=== PATIENT | female | born 1970 ===

== ENCOUNTER 2018-04-25 11:37 | Emergency (ER) | payer BC ==
[2018-04-25 11:43] VITALS: BP 94/66; PULSE 77; TEMP 99; O2SAT 100
--- NOTE | 2018-04-25 12:23 | ED PDOC ---
HPI: CCC, URI, Sore Throat Time Seen by Provider: 04/25/18 12:15 Chief Complaint (Nursing): ENT Problem Chief Complaint (Provider): sore throat x 3 days History Per: Patient History/Exam Limitations: no limitations Have you had recent travel within the past 21 days to any of the following countries: [place], [place], [place] or [place]?: No Onset/Duration Of Symptoms: Days Current Symptoms Are (Timing): Still Present Location Of Pain: Throat. denies: Ear(s) Sick Contacts (Context): None Associated Symptoms: Fever, Chills, Sore Throat, Myalgias. denies: Cough, Sputum, Vomiting, Diarrhea Additional Complaint(s): 47 yo female with non-symptomatic hypotension presents with 3 days of sore throat. Pain localized, worse with swallowing. Pt states she had a fever yesterday of 102.0. Pt denies cough. Pt has been taking teraflu which does not seem to be helping. Pt contacted PMD but could not reach her. Past Medical History Reviewed: Historical Data, Nursing Documentation, Vital Signs Vital Signs: Last Vital Signs Temp 99 F 04/25/18 11:42 Pulse 77 04/25/18 11:42 Resp BP 94/66 L 04/25/18 11:42 Pulse Ox 100 04/25/18 11:42 - Medical History PMH: No Chronic Diseases - Surgical History Surgical History: No Surg Hx - Family History Family History: States: No Known Family Hx - Living Arrangements Living Arrangements: With Family - Social History Current smoker - smoking cessation education provided: No - Immunization History Hx Tetanus Toxoid Vaccination: No Hx Influenza Vaccination: No Hx Pneumococcal Vaccination: No - Home Medications Home Medications: Ambulatory Orders Medication Instructions Recorded Cyclobenzaprine HCl [Flexeril] 1 tab PO TID PRN #25 tab 03/29/14 Naproxen [Naprosyn] 1 tab PO BID PRN #25 tab 03/29/14 oxyCODONE/Acetaminophen [Percocet 1 tab PO QID PRN #20 tab 03/29/14 5/325 mg Tab] Amoxicillin/Clavulanate [Augmentin 10 ml PO BID #200 ml 04/25/18 400-57 mg/5 mL Susp] - Allergies Allergies/Adverse Reactions: Allergies Allergy/AdvReac Type Severity Reaction Status Date / Time No Known Allergies Allergy Unverified 03/29/14 07:56 Review of Systems ROS Statement: Except As Marked, All Systems Reviewed And Found Negative Constitutional: Positive for: Fever, Chills. Negative for: Malaise ENT: Positive for: Throat Pain, Throat Swelling Cardiovascular: Negative for: Chest Pain Respiratory: Negative for: Cough, Shortness of Breath Physical Exam - Reviewed Nursing Documentation Reviewed: Yes Vital Signs Reviewed: Yes - Physical Exam Appears: Positive for: Well, Non-toxic, No Acute Distress Head Exam: Positive for: ATRAUMATIC, NORMAL INSPECTION, NORMOCEPHALIC Skin: Positive for: Normal Color, Warm, DRY Eye Exam: Positive for: Normal appearance, PERRL ENT: Positive for: Pharynx Is, Tonsillar Exudate, Tonsillar Swelling, Other ( uvula midline ). Negative for: Normal ENT Inspection Neck: Positive for: Normal, Painless ROM Cardiovascular/Chest: Positive for: Regular Rate, Rhythm Respiratory: Positive for: CNT, Normal Breath Sounds Gastrointestinal/Abdominal: Positive for: Normal Exam, Soft Back: Positive for: Normal Inspection Extremity: Positive for: Normal ROM Neurologic/Psych: Positive for: Alert, Oriented - ECG O2 Sat by Pulse Oximetry: 100 Medical Decision Making Medical Decision Making: decadron IM given for pain and inflammation. Disposition - Clinical Impression Clinical Impression: Strep pharyngitis - Patient ED Disposition Is Patient to be Admitted: No Counseled Patient/Family Regarding: Diagnosis, Need For Followup, Rx Given - Disposition Other/Non [facility] provider: Dr. Higgins Disposition: Routine/Home Disposition Time: 12:22 Condition: GOOD Prescriptions: Amoxicillin/Clavulanate [Augmentin 400-57 mg/5 mL Susp] 10 ml PO BID #200 ml Instructions: Strep Throat (DC)
== END 2018-04-25 12:53 | disposition home or self-care (01) ==
LOC: H.ER 11:37
DX: J02.0 Streptococcal pharyngitis (principal)
CPT/HCPCS: 96372; 99283; J1100

== ENCOUNTER 2018-04-30 06:25 | Emergency (ER) | payer BC ==
[2018-04-30 06:38] VITALS: RESP 16; TEMP 98.2
[2018-04-30] MEDS ORDERED: Iohexol 240 (50 ml) PO ONE (07:17)
[2018-04-30] MEDS ORDERED: Sodium Chloride 0.9% 1,000 ML IV STA (07:17)
--- NOTE | 2018-04-30 07:19 | ED PDOC ---
HPI: Abdomen Time Seen by Provider: 04/30/18 07:09 Chief Complaint (Nursing): Abdominal Pain Chief Complaint (Provider): Abdominal Pain History Per: Patient History/Exam Limitations: no limitations Onset/Duration Of Symptoms: Days (x2) Current Symptoms Are (Timing): Still Present Location Of Pain/Discomfort: RUQ, RLQ Quality Of Discomfort: Other ("Tight") Associated Symptoms: Nausea, Back Pain. denies: Vomiting, Diarrhea Exacerbating Factors: None Alleviating Factors: None Additional Complaint(s): 47 y/o female with a PMHx of Asthma presents to the ED complaining of constant right sided abdominal pain, onset 2 days ago. Patient states pain radiates to her back and is associated with nausea. Patient reports of having similar pain in the past. Patient's daughter reports that patient was seen here a couple days ago and diagnosed with strep throat and is currently on antibiotics for treatment. Denies vomiting, diarrhea, chest pain, leg pain, dysuria, injury, changes in diet and taking medications for symptom relief. PMD: Patrizia Hernandez Past Medical History Reviewed: Historical Data, Nursing Documentation, Vital Signs Vital Signs: Last Vital Signs Temp 98.2 F 04/30/18 06:34 Pulse 60 04/30/18 06:34 Resp 16 04/30/18 06:34 BP 104/66 04/30/18 06:34 Pulse Ox 99 04/30/18 10:54 - Medical History PMH: Asthma - Surgical History Surgical History: Other surgeries: Partial Hysterectomy - Family History Family History: States: Unknown Family Hx - Immunization History Hx Tetanus Toxoid Vaccination: No Hx Influenza Vaccination: No Hx Pneumococcal Vaccination: No - Home Medications Home Medications: Ambulatory Orders Medication Instructions Recorded Cyclobenzaprine HCl [Flexeril] 1 tab PO TID PRN #25 tab 03/29/14 Naproxen [Naprosyn] 1 tab PO BID PRN #25 tab 03/29/14 oxyCODONE/Acetaminophen [Percocet 1 tab PO QID PRN #20 tab 03/29/14 5/325 mg Tab] Amoxicillin/Clavulanate [Augmentin 10 ml PO BID #200 ml 04/25/18 400-57 mg/5 mL Susp] Ibuprofen [Motrin] 600 mg PO TID 7 Days tab 04/30/18 Magnesium Citrate [[facility] 150 ml PO DAILY PRN 5 Days bottle 04/30/18 Pharmacy Magnesium Citrate] - Allergies Allergies/Adverse Reactions: Allergies Allergy/AdvReac Type Severity Reaction Status Date / Time No Known Allergies Allergy Unverified 03/29/14 07:56 Review of Systems ROS Statement: Except As Marked, All Systems Reviewed And Found Negative Cardiovascular: Negative for: Chest Pain Gastrointestinal: Positive for: Nausea, Abdominal Pain. Negative for: Vomiting , Diarrhea Genitourinary Female: Negative for: Dysuria Musculoskeletal: Positive for: Back Pain. Negative for: Leg Pain Physical Exam - Reviewed Nursing Documentation Reviewed: Yes Vital Signs Reviewed: Yes - Physical Exam Head Exam: Positive for: ATRAUMATIC, NORMOCEPHALIC Skin: Positive for: Normal Color, Warm, Dry Eye Exam: Positive for: Normal appearance, EOMI, PERRL Neck: Positive for: Normal, Painless ROM Cardiovascular/Chest: Positive for: Regular Rate, Rhythm. Negative for: Murmur Respiratory: Positive for: Normal Breath Sounds. Negative for: Respiratory Distress Gastrointestinal/Abdominal: Positive for: Normal Exam, Soft, Tenderness (Right Upper and Right Lower quadrant tenderness) Pelvic Exam: Positive for: Other (No Pelvic Tenderness) Back: Positive for: Normal Inspection, Other (Right Flank Tenderness) Extremity: Positive for: Normal ROM. Negative for: Deformity Neurologic/Psych: Positive for: Alert, Oriented. Negative for: Motor/Sensory Deficits - Laboratory Results Result Diagrams: 04/30/18 07:55 04/30/18 07:55 Interpretation Of Abn Labs: 373 lipase - ECG O2 Sat by Pulse Oximetry: 99 (RA) Pulse Ox Interpretation: Normal - CT Scan/US ct Other Rad Studies (CT/US): Read By Radiologist Other Rad Interpretation: constipation - Progress ED Course And Treament: 1131: Stable. AAOx3. Tolerated PO. Pain improved. Will give more pain meds and mag citrate for constipation. Lipase borderline and no findings on ct so likely not pancreatitis. Medical Decision Making Medical Decision Making: Time: 719 Impression: Abdominal Pain Plan: -- CT Abd/Pelvis PO & IV Contrast -- CMP -- Lipase -- ED Urine Dipstick -- ED Urine -- CBC with differentials -- Sodium Chloride IV 1000 mls/hr -- Iohexol 240 in 50 mL -- Toradol 15 mg IVP -- Zofran Inj 4 mg IV Time: 1025 CT ABD/PELVIS RESULTS FINDINGS: LOWER THORAX: The visualized lungs are clear. LIVER: Mild hepatomegaly and diffuse fatty liver. There is a 2.0 cm simple cyst in the anterior superior left hepatic lobe. No ductal dilatation. GALLBLADDER AND BILE DUCTS: No calcified gallstones. PANCREAS: Normal in size with homogeneous enhancement. No gross lesion or ductal dilatation. SPLEEN: Normal in size and appearance. ADRENALS: No discrete nodule. KIDNEYS AND URETERS: Normal in size with homogeneous enhancement. No hydronephrosis. No solid mass. VASCULATURE: No aortic aneurysm. BOWEL: The small bowel loops are normal in caliber. There is large amount of stool in the colon. No bowel dilatation or obstruction. APPENDIX: Normal appendix. PERITONEUM: No free fluid. No free air. LYMPH NODES: No enlarged lymph nodes. BLADDER: Grossly normal in appearance. REPRODUCTIVE: The uterus is surgically absent. BONES: No acute fracture. Within normal limits for the patient's age. OTHER FINDINGS: None. IMPRESSION: No acute abdominal or pelvic abnormality. Constipation. No evidence of bowel obstruction. Mild hepatomegaly and fatty liver. Scribe Attestation: Documented by Tatyana Crawford acting as a scribe for Dr. Fab Michaud MD. Provider Scribe Attestation: All medical record entries made by the Scribe were at my direction and personally dictated by me. I have reviewed the chart and agree that the record accurately reflects my personal performance of the history, physical exam, medical decision making, and the department course for this patient. I have also personally directed, reviewed, and agree with the discharge instructions and disposition. Disposition - Clinical Impression Clinical Impression: Constipation, Abdominal pain - Disposition Referrals: Patrizia Hernandez MD [Primary Care Provider] - 05/04/18 Disposition: Routine/Home Disposition Time: 11:37 Condition: STABLE Additional Instructions: Return if not better in 3 days. Prescriptions: Ibuprofen [Motrin] 600 mg PO TID 7 Days tab Magnesium Citrate [[facility] Magnesium Citrate] 150 ml PO DAILY PRN 5 Days bottle PRN Reason: Constipation Instructions: Constipation in Adults, Stomach Ache and Stomach Upset Forms: [facility] (Lao)
[2018-04-30] MEDS ORDERED: Iohexol 240 (50 ml) ONE (07:28)
[2018-04-30 08:17] LABS: BASO # 0.1 K/uL (0.0-0.2); BASO % 0.7 % (0.0-2.0); EOS # 0.1 K/uL (0.0-0.7); EOS % 1.2 % (0.0-4.0); LYMPH # 2.3 K/uL (1.0-4.3); MEAN CELL VOLUME 85.9 fl (81.0-99.0); MEAN CORPUSCULAR HEMOGLOBIN 29.2 pg (27.0-31.0); MEAN PLATELET VOLUME 8.9 fl (7.2-11.7); MONO # 0.7 K/uL (0.0-0.8); MONO % 7.7 % (0.0-10.0); NEUT # 5.7 K/uL (1.8-7.0); NEUT % 64.4 % (50.0-75.0); NRBC % 0.1 % (0.0-0.0); RBC 4.46 Mil/uL (3.80-5.20); RED CELL DISTRIBUTION WIDTH 14.1 % (11.5-14.5); WHITE BLOOD COUNT 8.9 K/uL (4.8-10.8)
[2018-04-30 08:44] LABS: ALB/GLOB RATIO 1.3 (1.0-2.1); ALBUMIN 3.7 g/dL (3.5-5.0); ALT/SGPT 33 U/L (9-52); AST/SGOT 33 U/L (14-36); BLOOD UREA NITROGEN 17 mg/dl (7-17); CALCIUM 9.3 mg/dL (8.4-10.2); GFR AFRICAN-AMERICAN > 60; GFR NON-AFRICAN AMERICAN > 60; LIPASE 373 U/L (23-300)
[2018-04-30] MEDS ORDERED: Iohexol 300 100 ML IJ ONE (09:46)
[2018-04-30] MEDS ORDERED: Sodium Chloride 0.9% 50 ML IV ONE (09:46)
--- NOTE | 2018-04-30 10:27 | CT ---
Date of service: 04/30/2018 PROCEDURE: CT Abdomen and Pelvis with contrast HISTORY: Abdominal pain COMPARISON: None. TECHNIQUE: CT scan of the abdomen and pelvis was performed without administration of intravenous contrast. Oral contrast was not administered. Coronal and sagittal reformatted images were obtained. Contrast dose: 95 cc Omnipaque 300 Radiation dose: Total exam DLP = 612.93 mGy-cm. This CT exam was performed using one or more of the following dose reduction techniques: Automated exposure control, adjustment of the mA and/or kV according to patient size, and/or use of iterative reconstruction technique. FINDINGS: LOWER THORAX: The visualized lungs are clear. LIVER: Mild hepatomegaly and diffuse fatty liver. There is a 2.0 cm simple cyst in the anterior superior left hepatic lobe. No ductal dilatation. GALLBLADDER AND BILE DUCTS: No calcified gallstones. PANCREAS: Normal in size with homogeneous enhancement. No gross lesion or ductal dilatation. SPLEEN: Normal in size and appearance. ADRENALS: No discrete nodule. KIDNEYS AND URETERS: Normal in size with homogeneous enhancement. No hydronephrosis. No solid mass. VASCULATURE: No aortic aneurysm. BOWEL: The small bowel loops are normal in caliber. There is large amount of stool in the colon. No bowel dilatation or obstruction. APPENDIX: Normal appendix. PERITONEUM: No free fluid. No free air. LYMPH NODES: No enlarged lymph nodes. BLADDER: Grossly normal in appearance. REPRODUCTIVE: The uterus is surgically absent. BONES: No acute fracture. Within normal limits for the patient's age. OTHER FINDINGS: None. IMPRESSION: No acute abdominal or pelvic abnormality. Constipation. No evidence of bowel obstruction. Mild hepatomegaly and fatty liver.
[2018-04-30] MEDS ORDERED: Magnesium Citrate Oral SOL (300 ml) PO STA (11:33)
[2018-04-30 12:02] VITALS: BP 105/66; PULSE 70; O2SAT 98
== END 2018-04-30 12:02 | disposition home or self-care (01) ==
LOC: H.ER 06:25
DX: R10.9 Unspecified abdominal pain (principal); K59.00 Constipation, unspecified
CPT/HCPCS: 74177; 80053; 81025; 83690; 85025; 96374; 99284; J1885; J2405; J7030; Q9966; Q9967